=== PATIENT | female | born 1965 | race Caucasian/White ===

== ENCOUNTER → 2016-05-23 | Outpatient (CLI) | payer BC ==
[2016-05-23 19:23] LABS: Basophils # (A) 0.1 k/uL (0-0.2); Basophils % (A) 1 %; CH 32.7; CHCM 33.7; Eosinophils # (A) 0.1 k/uL (0-0.7); Eosinophils % (A) 2 %; HCT 47.8 % (34.0-46.0); HDW 2.32; HGB 15.5 gm/dL (11.4-16.0); Luc # (Auto) 0.11; Luc % (Auto) 1; Lymphocytes # (A) 2.1 k/uL (1.0-4.8); Lymphocytes % (A) 27 %; MCH 31.6 pg (25.0-35.0); MCHC 32.4 g/dL (31.0-37.0); MCV 97.5 fL (80.0-100.0); Mean Platelet Volume 8.3; Monocytes # (A) 0.3 k/uL (0-1.0); Monocytes % (A) 4 %; Neutrophils # (A) 5.1 k/uL (1.3-7.7); Neutrophils % (A) 65 %; RDW 12.8 % (11.5-15.5); WBC 7.8 k/uL (3.8-10.6); WBC (Perox) 7.72
[2016-05-23 19:46] LABS: ALT 40 U/L (9-52); AST 22 U/L (14-36); Alkaline Phosphatase 65 U/L (38-126); Anion Gap 12 mmol/L; Blood Urea Nitrogen 15 mg/dL (7-17); Calcium 9.7 mg/dL (8.4-10.2); Carbon Dioxide 22 mmol/L (22-30); Chloride 106 mmol/L (98-107); Cholesterol 238 mg/dL (<200); Glucose 106 mg/dL (74-99); HDL Cholesterol 45 mg/dL (40-60); Non-African American GFR(MDRD) >60 (>60 ml/min/1.73 sqM); Potassium 4.4 mmol/L (3.5-5.1); Sodium 140 mmol/L (137-145); Total Bilirubin 0.5 mg/dL (0.2-1.3); Total Protein 7.2 g/dL (6.3-8.2); Triglycerides 271 mg/dL (<150)
[2016-05-23 19:54] LABS: Follicle Stimulating Hormone 36.8 mIU/mL
== END ==
LOC: MMGSC 12:07
PROVIDERS: ATTEND Family Medicine
DX: E55.9 Vitamin D deficiency, unspecified (principal); R63.5 Abnormal weight gain; N93.8 Other specified abnormal uterine and vaginal bleeding; E78.1 Pure hyperglyceridemia
CPT/HCPCS: 36415; 80053; 80061; 82306; 83001; 83002; 84439; 84443; 85025

== ENCOUNTER → 2017-02-23 | Outpatient (CLI) | payer BC ==
[2017-02-23 21:18] LABS: ALT 40 U/L (9-52); AST 22 U/L (14-36); Albumin 4.2 g/dL (3.5-5.0); Alkaline Phosphatase 80 U/L (38-126); Anion Gap 12 mmol/L; Blood Urea Nitrogen 13 mg/dL (7-17); Calcium 9.7 mg/dL (8.4-10.2); Carbon Dioxide 26 mmol/L (22-30); Chloride 103 mmol/L (98-107); Cholesterol 252 mg/dL (<200); Glucose 114 mg/dL (74-99); HDL Cholesterol 37 mg/dL (40-60); LDL Cholesterol,Calculated 168 mg/dL (0-99); Potassium 4.2 mmol/L (3.5-5.1); Sodium 141 mmol/L (137-145); Total Bilirubin 0.4 mg/dL (0.2-1.3); Total Protein 6.9 g/dL (6.3-8.2); Triglycerides 234 mg/dL (<150)
== END | disposition home or self-care (01) ==
LOC: MMGSC 10:20
PROVIDERS: ATTEND Family Medicine
DX: E78.5 Hyperlipidemia, unspecified (principal); E55.9 Vitamin D deficiency, unspecified; Z51.81 Encounter for therapeutic drug level monitoring
CPT/HCPCS: 36415; 80053; 80061; 82306

== ENCOUNTER → 2017-03-05 | Outpatient (CLI) | payer BC ==
[2017-03-06 03:39] LABS: Hemoglobin A1C 6.2 % (4.0-6.0)
== END | disposition home or self-care (01) ==
LOC: MMGSC 14:31
PROVIDERS: ATTEND Family Medicine
DX: R73.09 Other abnormal glucose (principal)
CPT/HCPCS: 36415; 83036

== ENCOUNTER → 2017-03-14 | Outpatient (CLI) | payer BC ==
--- NOTE | 2017-03-15 13:26 | MM ---
Reason for exam: screening (asymptomatic). Last mammogram was performed 1 year and 5 months ago. History: Family history of breast cancer in aunt at age 45. Physical Findings: A clinical breast exam by your physician is recommended on an annual basis and results should be correlated with mammographic findings. MG Screening Mammo w CAD Bilateral CC and MLO view(s) were taken. Prior study comparison: October 14, 2015, bilateral MG screening mammo w CAD. August 12, 2014, bilateral MG screening mammo w CAD. The breast tissue is heterogeneously dense. This may lower the sensitivity of mammography. Finding: There are few typically benign round calcifications in both breasts. There is no discrete abnormality. ASSESSMENT: Benign, BI-RAD 2 RECOMMENDATION: Routine screening mammogram of both breasts in 1 year.
== END | disposition home or self-care (01) ==
LOC: RADMAMWWP 08:35
PROVIDERS: ATTEND Family Medicine
DX: Z12.31 Encounter for screening mammogram for malignant neoplasm of breast (principal)
CPT/HCPCS: 77067

== ENCOUNTER → 2018-04-11 | Outpatient (CLI) | payer BC ==
--- NOTE | 2018-04-12 09:54 | MM ---
Reason for exam: screening (asymptomatic). Last mammogram was performed 1 year and 1 month ago. History: Patient is postmenopausal. Family history of breast cancer in aunt at age 45. Physical Findings: A clinical breast exam by your physician is recommended on an annual basis and results should be correlated with mammographic findings. MG Screening Mammo w CAD Bilateral CC and MLO view(s) were taken. Prior study comparison: March 14, 2017, bilateral MG screening mammo w CAD. October 14, 2015, bilateral MG screening mammo w CAD. The breast tissue is heterogeneously dense. This may lower the sensitivity of mammography. No suspicious abnormality. No significant changes when compared with prior studies. ASSESSMENT: Negative, BI-RAD 1 RECOMMENDATION: Routine screening mammogram of both breasts in 1 year.
== END | disposition home or self-care (01) ==
LOC: RADMAMWWP 09:41
PROVIDERS: ATTEND Family Medicine
DX: Z12.31 Encounter for screening mammogram for malignant neoplasm of breast (principal)
CPT/HCPCS: 77067

== ENCOUNTER 2018-09-18 08:56 | Day surgery (SDC) | payer BC ==
[2018-09-11 10:06] VITALS: BMI 31.3
[~2018-09-18 08:56] MED LIST: LACTATED RINGERS 1,000 ML IV SCH
[2018-09-18 09:19] VITALS: RESP 16; TEMP 96.3
[2018-09-18] MEDS ORDERED: LIDOCAINE 1% 20 ML VIAL (10MG/ML) FOR IV START INTRADERMA ONE (09:25)
[2018-09-18 09:26] LABS: Glucose,Whole Blood 139 mg/dL (75-99)
[2018-09-18] MEDS ORDERED: MIDAZOLAM 2 MG/2 ML VIAL ONE (09:26)
[2018-09-18] MEDS ORDERED: ONDANSETRON 4 MG/2 ML VIAL ONE (09:26)
[2018-09-18] MEDS ORDERED: PROPOFOL 10 MG/ML 20 ML VIAL IV ONE (09:26)
--- NOTE | 2018-09-18 09:31 | P.GSHP ---
History of Present Illness H&P Date: 09/18/18 Chief Complaint: Blood in stool 52-year-old female known to our service. Patient had today for colonoscopy. Patient's father with colon cancer. Recently had a cologuard test comes back positive. Does not see gross bleeding or melena. Has not had a previous colonoscopy. Past Medical History Past Medical History: Diabetes Mellitus, GERD/Reflux, Hypertension Additional Past Medical History / Comment(s): + COLOGARD TEST History of Any Multi-Drug Resistant Organisms: None Reported Past Surgical History: Uterine Ablation Additional Past Anesthesia/Blood Transfusion Reaction / Comment(s): COMES OUT OF ANESTHESIA CRYING PER PT Smoking Status: Current every day smoker - Past Family History Father Family Medical History: Cancer Additional Family Medical History / Comment(s): COLONOSCOPY Medications and Allergies Home Medications Medication Instructions Recorded Confirmed Type Cetirizine HCl [Zyrtec] 10 mg PO DAILY 09/11/18 09/11/18 History Cholecalciferol [Vitamin D3] 800 unit PO DAILY 09/11/18 09/11/18 History Cranberry-4200mg 8,400 mg PO DAILY 09/11/18 History Fish Oil/Dha/Epa [Fish Oil 1,200 1 each PO DAILY 09/11/18 09/11/18 History mg Fish Oil] Furosemide [Lasix] 20 mg PO DAILY 09/11/18 09/11/18 History Pravastatin Sodium [Pravachol] 40 mg PO DAILY 09/11/18 09/11/18 History Ranitidine HCl 150 mg PO DAILY PRN 09/11/18 09/11/18 History Vitamin B Complex 1 each PO DAILY 09/11/18 09/11/18 History metFORMIN HCL [metFORMIN HCL ER 500 mg PO HS 09/11/18 09/11/18 History Osmotic] Allergies Allergy/AdvReac Type Severity Reaction Status Date / Time No Known Allergies Allergy Verified 09/11/18 09:53 Surgical - Exam Vital Signs Temp Pulse Resp BP Pulse Ox 96.3 F L 98 16 136/97 97 09/18/18 09:17 09/18/18 09:17 09/18/18 09:17 09/18/18 09:17 09/18/18 09:17 Physical exam: General: Well-developed, well-nourished HEENT: Normocephalic, sclerae nonicteric Abdomen: Nontender, nondistended Extremities: No edema Neuro: Alert and oriented Results - Labs Abnormal Lab Results - Last 24 Hours (Table) 09/18/18 Range/Units 09:23 POC Glucose (mg/dL) 139 H (75-99) mg/dL Assessment and Plan (1) Blood in stool Narrative/Plan: Will proceed with colonoscopy at this time Current Visit: Yes Status: Acute Code(s): K92.1 - MELENA SNOMED Code(s): 101272556
--- NOTE | 2018-09-18 09:47 | P.PCN ---
Date of Procedure: 09/18/18 Procedure(s) Performed: PREOPERATIVE DIAGNOSIS: Blood in stool, family history colon cancer in father POSTOPERATIVE DIAGNOSIS: Diverticulosis, small sigmoid polyp, mild sigmoid colitis PROCEDURE: Colonoscopy with biopsy ANESTHESIA: MAC SURGEON: Winston Sanchez M.D. SPECIMENS: Sigmoid colon polyp/colitis ENDOSCOPIC PROCEDURE: The patient was placed on the endoscopy table in the left decubitus position. The Olympus colonoscope was inserted into the anus and passed under direct visualization to the base of the cecum. The appendiceal orifice was visualized. From that point the scope was slowly withdrawn inspecting all surfaces carefully. There were no neoplastic inflammatory or polypoid lesions throughout the cecum, ascending, transverse, and descending colon. In the sigmoid colon there was mild inflammatory changes seen scattered throughout the sigmoid colon consistent with a mild colitis. In one area there was an adjacent small polyp. Biopsies of the colitis and biopsy of the polyp took place using cold biopsy forceps. The remainder of the sigmoid and rectum appeared normal. There was moderate left-sided diverticulosis as well. Inflammatory changes did not appear typical of diverticulitis however. Digital rectal examination revealed small hemorrhoids. The patient was taken to the recovery room in stable condition per anesthesia guidelines. RECOMMENDATIONS: Await biopsy results. Anticipate follow-up colonoscopy 5 years given both the patient's history of colon cancer in her father and the small polyp seen.
[2018-09-18 10:07] VITALS: BP 109/69; PULSE 69
== END 2018-09-18 10:23 | disposition home or self-care (01) ==
LOC: ORWHC2ENDO 08:56
PROVIDERS: ATTEND Surgery
DX: R19.5 Other fecal abnormalities (principal); Z80.0 Family history of malignant neoplasm of digestive organs; K52.9 Noninfective gastroenteritis and colitis, unspecified; D12.5 Benign neoplasm of sigmoid colon; E11.9 Type 2 diabetes mellitus without complications; F17.200 Nicotine dependence, unspecified, uncomplicated; I10 Essential (primary) hypertension; K64.9 Unspecified hemorrhoids
CPT/HCPCS: 88305; 45380; J2250; J2405; J2704

== ENCOUNTER → 2020-03-18 | Outpatient (CLI) | payer BC ==
--- NOTE | 2020-03-19 11:36 | MM ---
Reason for exam: screening (asymptomatic). Last mammogram was performed 1 year and 11 months ago. History: Patient is postmenopausal and has history of other cancer at age 53. Family history of breast cancer in aunt at age 45. Physical Findings: A clinical breast exam by your physician is recommended on an annual basis and results should be correlated with mammographic findings. MG Screening Mammo w CAD Bilateral CC and MLO view(s) were taken. Prior study comparison: April 11, 2018, bilateral MG screening mammo w CAD. March 14, 2017, bilateral MG screening mammo w CAD. The breast tissue is heterogeneously dense. This may lower the sensitivity of mammography. Stable benign calcifications. There is no discrete abnormality. Focal asymmetry upper outer left breast. No significant changes when compared with prior studies. ASSESSMENT: Benign, BI-RAD 2 RECOMMENDATION: Routine screening mammogram of both breasts in 1 year.
== END | disposition home or self-care (01) ==
LOC: RADMAMWWP 10:53
PROVIDERS: ATTEND Family Medicine
DX: Z12.31 Encounter for screening mammogram for malignant neoplasm of breast (principal)
CPT/HCPCS: 77067

== ENCOUNTER → 2020-03-29 | Outpatient (CLI) | payer BC | END | disposition home or self-care (01) | LOC: LABWHC1 15:32 | PROVIDERS: ATTEND Family Medicine | DX: Z20.822 Contact with and (suspected) exposure to COVID-19 (principal) | CPT/HCPCS: U0003; C9803 ==

== ENCOUNTER → 2020-04-09 | Outpatient (CLI) | payer BC ==
--- NOTE | 2020-04-09 14:52 | US ---
EXAMINATION TYPE: US pelvis complete transvag DATE OF EXAM: 04/09/2020 COMPARISON: NONE CLINICAL HISTORY: R10.9 abdominal pain. R10.2 pelvic pain. TECHNIQUE: Transvaginal (TV) and Transabdominal (TA) . Transabdominal sonographic images of the pel vis were acquired. Transvaginal sonographic images were medically necessary to better assess the fol lowing anatomy: Date of LMP: post menopausal, no HRT. EXAM MEASUREMENTS: Uterus: 6.9 x 3.5 x 5.1 cm Endometrial Stripe: 0.3 cm Right Ovary: 2.9 x 1.3 x 3.1 cm Left Ovary: 2.8 x 1.4 x 1.8 cm 1. Uterus: Anteverted heterogenous, echogenic area measures 1.2 x 1.0 x 1.2 cm posterior uterus ne ar endometrium. 2. Endometrium: wnl 3. Right Ovary: wnl 4. Left Ovary: wnl 5. Bilateral Adnexa: wnl 6. Posterior cul-de-sac: no free fluid Urinary bladder is sonolucent. IMPRESSION: 1. May be an echogenic uterine fibroid within the fundus of uterus. 2. Pelvic ultrasound is otherwise unremarkable.
--- NOTE | 2020-04-09 15:17 | US ---
EXAMINATION TYPE: US abdomen complete DATE OF EXAM: 04/09/2020 COMPARISON: NONE CLINICAL HISTORY: R10.9 abdominal pain. R10.2 pelvic pain. EXAM MEASUREMENTS: Liver Length: 13.3 cm Gallbladder Wall: 0.2 cm CBD: 0.5 cm Spleen: 11.1 cm Right Kidney: 12.4 x 4.6 x 5.2 cm Left Kidney: 13.5 x 4.6 x 6.2 cm Pancreas: not well visualized due to overlying bowel gas. Liver: difficult to penetrate Gallbladder: several stones with shadowing Evidence for sonographic Campo's sign: No CBD: wnl Spleen: wnl Right Kidney: No hydronephrosis or masses seen Left Kidney: No hydronephrosis or masses seen Upper IVC: wnl Abd Aorta: wnl IMPRESSION: 1. Cholelithiasis.
== END ==
LOC: RADUSWWP 12:35
PROVIDERS: ATTEND Family Medicine
DX: K80.20 Calculus of gallbladder without cholecystitis without obstruction (principal)
CPT/HCPCS: 76700; 76830; 76856

== ENCOUNTER → 2021-12-13 | Outpatient (CLI) | payer BC ==
--- NOTE | 2021-12-14 08:17 | MM ---
Reason for Exam: Screening (asymptomatic). Last mammogram was performed 1 year(s) and 9 month(s) ago. Patient History: Menarche at age 10. First Full-Term at age 17. Postmenopausal. Other cancer, age 53. Maternal aunt had breast cancer, age 45. Risk Values: Татьяна 5 year model risk: 0.9%. NCI Lifetime model risk: 5.7%. Prior Study Comparison: 03/14/2017 Bilateral Screening Mammogram, [facility]. 04/11/2018 Bilateral Screening Mammogram, [facility]. 03/18/2020 Bilateral Screening Mammogram, [facility]. Tissue Density: The breast tissue is heterogeneously dense. This may lower the sensitivity of mammography. Findings: Analyzed By CAD. Asymmetric distortion zone seen best on the left MLO view and additional views are recommended. No suspicious calcifications evident. Overall Assessment: Incomplete: need additional imaging evaluation, BI-RAD 0 Management: Diagnostic Mammogram of the left breast. A clinical breast exam by your physician is recommended on an annual basis and results should be correlated with mammographic findings. Electronically signed and approved by: Price Hebert M.D. Radiologis
== END | disposition home or self-care (01) ==
LOC: RADMAMWWP 11:11
PROVIDERS: ATTEND Family Medicine
DX: Z12.31 Encounter for screening mammogram for malignant neoplasm of breast (principal); Z78.0 Asymptomatic menopausal state; Z80.3 Family history of malignant neoplasm of breast
CPT/HCPCS: 77063; 77067

== ENCOUNTER → 2021-12-19 | Outpatient (CLI) | payer BC ==
--- NOTE | 2021-12-19 10:31 | MM ---
Reason for Exam: Additional evaluation requested from abnormal screening. Last screening mammogram was performed less than 1 month ago. Patient History: Menarche at age 10. First Full-Term at age 17. Postmenopausal. Other cancer, age 53. Maternal aunt had breast cancer, age 45. Risk Values: Татьяна 5 year model risk: 0.9%. NCI Lifetime model risk: 5.7%. Prior Study Comparison: 04/11/2018 Bilateral Screening Mammogram, [facility]. 03/18/2020 Bilateral Screening Mammogram, [facility]. 12/13/2021 Bilateral MG 3D screening mammo w/cad, [facility]. Tissue Density: Left: The breast tissue is heterogeneously dense. This may lower the sensitivity of mammography. Findings: Analyzed By CAD. Asymmetric prominent soft tissue in the inferior left breast persists and is not significantly changed from older mammograms. No definitive new lesion identified on additional views. Overall Assessment: Negative, BI-RAD 1 Management: Screening Mammogram of both breasts in 1 year. Return to routine follow-up. Results were given to the patient verbally at the time of exam. Electronically signed and approved by: Franklyn Lopez M.D.
== END | disposition home or self-care (01) ==
LOC: RADMAMWWP 10:01
PROVIDERS: ATTEND Family Medicine
DX: R92.8 Other abnormal and inconclusive findings on diagnostic imaging of breast (principal); Z78.0 Asymptomatic menopausal state; Z80.3 Family history of malignant neoplasm of breast
CPT/HCPCS: 77061; 77065

== ENCOUNTER 2022-06-01 23:24 | Observation (INO) | payer BC ==
[2022-06-01 23:36] VITALS: TEMP 97.8
[2022-06-02 00:22] LABS: Basophils # (A) 0.1 k/uL (0-0.2); Basophils % (A) 1 %; Eosinophils # (A) 0.1 k/uL (0-0.7); Eosinophils % (A) 1 %; HCT 45.2 % (34.0-46.0); HGB 15.8 gm/dL (11.4-16.0); Lymphocytes # (A) 3.3 k/uL (1.0-4.8); Lymphocytes % (A) 33 %; MCH 31.7 pg (25.0-35.0); MCHC 34.9 g/dL (31.0-37.0); Mean Platelet Volume 7.8; Monocytes # (A) 0.4 k/uL (0-1.0); Monocytes % (A) 4 %; Neutrophils % (A) 60 %; Platelet Count 216 k/uL (150-450); RBC 4.97 m/uL (3.80-5.40); RDW 12.1 % (11.5-15.5); WBC 10.1 k/uL (3.8-10.6)
[2022-06-02 00:27] LABS: Potassium 3.6 mmol/L (3.5-5.1)
[2022-06-02 00:28] LABS: Albumin 4.5 g/dL (3.5-5.0); Calcium 9.7 mg/dL (8.4-10.2); Magnesium 1.8 mg/dL (1.6-2.3); Total Bilirubin 0.5 mg/dL (0.2-1.3); Total Protein 7.1 g/dL (6.3-8.2)
[2022-06-02 00:30] LABS: INR 0.9 (<1.2); Partial Thromboplastin Time 23.3 sec (22.0-30.0)
--- NOTE | 2022-06-02 01:11 | XR ---
EXAM: XR Chest, 2 Views CLINICAL HISTORY: ITS.REASON XR Reason: Chest Pain TECHNIQUE: Frontal and lateral views of the chest. COMPARISON: No relevant prior studies available. FINDINGS: Lungs: Unremarkable. No consolidation. Pleural space: Unremarkable. No pneumothorax. Heart: Unremarkable. No cardiomegaly. Mediastinum: Unremarkable. Bones/joints: Unremarkable. IMPRESSION: Normal chest x-rays.
[2022-06-02] MEDS ORDERED: ASPIRIN 81 MG PO STA (01:49)
[2022-06-02] MEDS ORDERED: NITROGLYCERIN SL TABS 0.4 MG TAB SUBLINGUAL STA (01:49)
[2022-06-02] MEDS ORDERED: ACETAMINOPHEN TAB 500 MG TAB PO STA (01:50)
[2022-06-02] MEDS ORDERED: MORPHINE SULFATE 4 MG/ML SYRINGE IVP STA (02:57)
[2022-06-02] MEDS ORDERED: NALOXONE 0.4 MG/ML 1 ML VIAL IV PRN (02:57)
--- NOTE | 2022-06-02 02:57 | ED ---
Chest Pain HPI - General Chief Complaint: Chest Pain Stated Complaint: Chest Pain Time Seen by Provider: 06/02/22 00:31 Source: patient Mode of arrival: ambulatory Limitations: no limitations - History of Present Illness Initial Comments: 56-year-old female with past medical history of diabetes, high cholesterol who presents to the emergency department reporting chest pain. States that it started around 10:30. Describes it as a burning sensation over the anterior portion of her chest. States that the pain then began to go into her neck. She admits to nausea without vomiting. No ripping or tearing sensation. Denies fevers, chills or cough. No history of cardiac disease. Does have a strong family history. Her mother has had open heart surgery 2. She did not take any medications at home for her symptoms before coming in. He denies any numbness, tingling or weakness in her extremities. No other alleviating, precipitating or modifying factors - Related Data Home Medications Medication Instructions Recorded Confirmed Cetirizine HCl [Zyrtec] 10 mg PO DAILY 09/11/18 09/18/18 Cholecalciferol [Vitamin D3] 800 unit PO DAILY 09/11/18 09/11/18 Cranberry-4200mg 8,400 mg PO DAILY 09/11/18 Fish Oil/Dha/Epa [Fish Oil 1,200 1 each PO DAILY 09/11/18 09/11/18 mg Fish Oil] Furosemide [Lasix] 20 mg PO DAILY 09/11/18 09/11/18 Pravastatin Sodium [Pravachol] 40 mg PO DAILY 09/11/18 09/11/18 Vitamin B Complex 1 each PO DAILY 09/11/18 09/11/18 metFORMIN HCL [metFORMIN HCL ER 500 mg PO HS 09/11/18 09/11/18 Osmotic] raNITIdine HCL [Zantac] 150 mg PO DAILY PRN 09/11/18 09/11/18 Allergies Allergy/AdvReac Type Severity Reaction Status Date / Time atorvastatin [From Lipitor] AdvReac Unknown Unverified 06/02/22 05:30 Review of Systems ROS Statement: Those systems with pertinent positive or pertinent negative responses have been documented in the HPI. ROS Other: All systems not noted in ROS Statement are negative. EKG Findings - EKG Comments: EKG Findings:: EKG demonstrates sinus rhythm with a rate of 93. LA interval 157. QRS 89. QTC of 414. No acute ST segment elevations or depressions Past Medical History Past Medical History: Diabetes Mellitus Additional Past Medical History / Comment(s): high cholestrol History of Any Multi-Drug Resistant Organisms: None Reported Past Surgical History: No Surgical Hx Reported Past Psychological History: No Psychological Hx Reported Smoking Status: Former smoker Past Alcohol Use History: Occasional Past Drug Use History: None Reported - Past Family History Father Family Medical History: Hypertension General Exam Limitations: no limitations Course Vital Signs 06/01/22 06/02/22 06/02/22 23:33 00:43 00:50 Temperature 97.8 F Pulse Rate 102 H 92 Respiratory 20 12 Rate Blood Pressure 137/90 121/86 121/86 O2 Sat by Pulse 99 98 Oximetry 06/02/22 06/02/22 06/02/22 01:00 01:10 01:20 Temperature Pulse Rate 89 92 90 Respiratory 17 12 19 Rate Blood Pressure 129/83 O2 Sat by Pulse 97 97 96 Oximetry 06/02/22 06/02/22 06/02/22 01:30 01:40 01:50 Temperature Pulse Rate 96 95 96 Respiratory 14 19 Rate Blood Pressure 124/80 O2 Sat by Pulse 95 95 96 Oximetry 06/02/22 06/02/22 06/02/22 02:00 02:10 02:15 Temperature Pulse Rate 98 102 H 106 H Respiratory 19 18 Rate Blood Pressure 127/92 127/92 O2 Sat by Pulse 96 95 96 Oximetry 06/02/22 06/02/22 06/02/22 02:30 02:40 02:50 Temperature Pulse Rate 102 H 101 H 101 H Respiratory 18 Rate Blood Pressure 128/81 109/81 O2 Sat by Pulse 96 95 96 Oximetry 06/02/22 06/02/22 06/02/22 03:00 03:10 03:20 Temperature Pulse Rate 110 H 106 H 99 Respiratory Rate Blood Pressure 122/97 O2 Sat by Pulse 95 95 94 L Oximetry 06/02/22 06/02/22 06/02/22 03:30 03:40 03:50 Temperature Pulse Rate 95 93 96 Respiratory 15 Rate Blood Pressure 116/75 O2 Sat by Pulse 95 94 L 94 L Oximetry 06/02/22 06/02/22 06/02/22 04:00 04:10 04:20 Temperature Pulse Rate 102 H 93 95 Respiratory 19 Rate Blood Pressure 116/75 117/81 O2 Sat by Pulse 95 92 L 94 L Oximetry 06/02/22 04:30 Temperature Pulse Rate 90 Respiratory 19 Rate Blood Pressure O2 Sat by Pulse 93 L Oximetry Chest Pain MDM - MDM Was pt. sent in by a medical professional or institution ([facility], PCT, urgent care, hospital, or halfway...) When possible be specific @ -[No] Did you speak to anyone other than the patient for history (EMS, parent, family, police, friend...)? What history was obtained from this source @ -[No] Did you review nursing and triage notes (agree or disagree)? Why? @ -[I reviewed and agree with nursing and triage notes] Were old charts reviewed (outside hosp., previous admission, EMS record, old EKG, old radiological studies, urgent care reports/EKG's, halfway records)? Report findings @ -[No old charts were reviewed] Differential Diagnosis (chest pain, altered mental status, abdominal pain women, abdominal pain men, vaginal bleeding, weakness, fever, dyspnea, syncope, headache, dizziness, GI bleed, back pain, seizure, CVA, palpatations, mental health, musculoskeletal)? @ -[not applicable] EKG interpreted by me (3pts min.). @ -[As above] X-rays interpreted by me (1pt min.). @ -[None done] CT interpreted by me (1pt min.). @ -[None done] U/S interpreted by me (1pt. min.). @ -[None done] What testing was considered but not performed or refused? (CT, X-rays, U/S, labs)? Why? @ -[None] What meds were considered but not given or refused? Why? @ -[None] Did you discuss the management of the patient with other professionals (professionals i.e. [facility], PCT, lab, RT, psych nurse, social psychologist, acoustical logging engineer, teacher, quarantine officer, returned case inspector)? Give summary @ -[No] Was smoking cessation discussed for >3mins.? @ -[No] Was critical care preformed (if so, how long)? @ -[No] Were there social determinants of health that impacted care today? How? (Homelessness, low income, unemployed, alcoholism, drug addiction, transportation, low edu. Level, literacy, decrease access to med. care, custodial, rehab)? @ -[No] Was there de-escalation of care discussed even if they declined (Discuss DNR or withdrawal of care, Hospice)? DNR status @ -[No] What co-morbidities impacted this encounter? (DM, HTN, Smoking, COPD, CAD, Cancer, CVA, ARF, Chemo, Hep., AIDS, mental health diagnosis, sleep apnea, morbid obesity)? @ -[None] Was patient admitted / discharged? Hospital course, mention meds given and route, prescriptions, significant lab abnormalities, going to OR and other pertinent info. @ -Upon arrival patient was placed into room 19. A thorough history and physical exam was performed. The lead EKG is obtained. Patient is placed on continuous pulse ox and cardiac monitoring. Laboratory studies are conducted and reviewed. Troponin is undetectable. Chest x-ray demonstrates no acute process. She is given a sublingual nitro which decreases her pain from a 10 out of 10 to a 7 out of 10. The patient is further given 4 mg of morphine. I recommended admission for which she was agreeable. Spoke with Dr. Lagos. Cardiology will be consulted and an echo was ordered Undiagnosed new problem with uncertain prognosis? @ -[No] Drug Therapy requiring intensive monitoring for toxicity (Heparin, Nitro, Insulin, Cardizem)? @ -[No] Were any procedures done? @ -[No] Diagnosis/symptom? @ -[default] Acute, or Chronic, or Acute on Chronic? @ -[default] Uncomplicated (without systemic symptoms) or Complicated (systemic symptoms)? @ -[default] Side effects of treatment? @ -[No] Exacerbation, Progression, or Severe Exacerbation? @ -[No] Poses a threat to life or bodily function? How? (Chest pain, [place], [place], pneumonia, PE, COPD, DKA, ARF, appy, cholecystitis, CVA, Diverticulitis, Homicidal, Suicidal, threat to staff... and all critical care pts) @ -[No] Disposition Clinical Impression: Chest pain Disposition: ADMITTED IP TO THIS [facility] Condition: Stable Is patient prescribed a controlled substance at d/c from ED?: No Time of Disposition: 02:56 Decision to Admit Reason: Admit from EC Decision Date: 06/02/22 Decision Time: 02:56
[2022-06-02] MEDS ORDERED: ATORVASTATIN 80 MG TAB PO STA (04:51)
--- NOTE | 2022-06-02 04:52 | P.HPIM ---
History of Present Illness H&P Date: 06/02/22 The patient is a 56-year-old female with a PMH of type II DM and hyperlipidemia who presents to the emergency room with complaints of chest discomfort and shortness of breath. The patient reports that her symptoms started earlier tonight at around 10 PM with substernal sharp, burning, stabbing chest discomfort, radiating up into her upper chest and neck, 10/10 maximal intensity, pleuritic in nature, without any additional associated symptoms. The patient reports that the pain was constant, and was improved after arrival at the emergency room and receiving pain medication. She reports that her pain is improved to a 1 out of 10 at the time of interview. She denied experiencing fever, chills, cough, nausea, vomiting, abdominal pain, diarrhea. Chest x-ray in the emergency room was unremarkable. EKG revealed sinus rhythm at [address]/T-wave changes noted as reviewed by me. Laboratory evaluation was remarkable for troponin less than 0.012, hgb 10.1, hemoglobin 15.8, sodium 137, potassium 3.6, BUN 20, creatinine 0.84. ED documentation reviewed and case discussed with ED provider. Review of systems: Pertinent positives and negatives as discussed in HPI, a complete review of systems was performed and all other systems are negative. Physical examination: Vital signs reviewed General: non toxic, no distress, appears at stated age, normal weight Derm: no unusual rashes/lesions, warm Head: atraumatic, normocephalic, symmetric Eyes: EOMI, no lid lag, anicteric sclera, pupils equal round reactive to light ENT: Nose and ears atraumatic Neck: No cervical lymphadenopathy, trachea midline, supple Mouth: no lip lesion, mucus membranes moist Cardiovascular: S1S2 reg, no murmur, positive dorsalis pedis pulse bilateral, no edema Lungs: CTA bilateral, no rhonchi, no rales, no accessory muscle use Abdominal: soft, nontender to palpation, no guarding Ext: muscle strength 5 out of 5 in all 4 extremities grossly, no gross muscle atrophy, no contractures, Neuro: CN II-XI grossly intact, no gross focal neuro deficits Psych: Alert, oriented, appropriate affect Assessment: Chest pain, rule out ACS Chronic conditions: Type 2 DM, hyperlipidemia Imaging: Chest x-ray in the emergency room was unremarkable. EKG revealed sinus rhythm at [address]/T-wave changes noted as reviewed by me. Data Review: Laboratory evaluation was remarkable for troponin less than 0.012, hgb 10.1, hemoglobin 15.8, sodium 137, potassium 3.6, BUN 20, creatinine 0.84. Plan: Obtain d-dimer levels Trend troponin Cardiac monitoring Cardiology consult Continue with aspirin, statin Insulin sliding scale and blood glucose monitoring DVT prophylaxis: Heparin subq The patient is admitted with an anticipated less than 2 midnight stay for evaluation of chest pain CODE STATUS: Full Code Discussed with: Patient Anticipated discharge place: Home Past Medical History Past Medical History: Diabetes Mellitus Additional Past Medical History / Comment(s): high cholestrol History of Any Multi-Drug Resistant Organisms: None Reported Past Surgical History: No Surgical Hx Reported Past Psychological History: No Psychological Hx Reported Smoking Status: Former smoker Past Alcohol Use History: Occasional Past Drug Use History: None Reported - Past Family History Father Family Medical History: Hypertension Medications and Allergies Home Medications Medication Instructions Recorded Confirmed Type Cetirizine HCl [Zyrtec] 10 mg PO DAILY 09/11/18 09/18/18 History Cholecalciferol [Vitamin D3] 800 unit PO DAILY 09/11/18 09/11/18 History Cranberry-4200mg 8,400 mg PO DAILY 09/11/18 History Fish Oil/Dha/Epa [Fish Oil 1,200 1 each PO DAILY 09/11/18 09/11/18 History mg Fish Oil] Furosemide [Lasix] 20 mg PO DAILY 09/11/18 09/11/18 History Pravastatin Sodium [Pravachol] 40 mg PO DAILY 09/11/18 09/11/18 History Vitamin B Complex 1 each PO DAILY 09/11/18 09/11/18 History metFORMIN HCL [metFORMIN HCL ER 500 mg PO HS 09/11/18 09/11/18 History Osmotic] raNITIdine HCL [Zantac] 150 mg PO DAILY PRN 09/11/18 09/11/18 History Allergies Allergy/AdvReac Type Severity Reaction Status Date / Time No Known Allergies Allergy Verified 06/01/22 23:36 Physical Exam Vitals: Vital Signs Temp Pulse Resp BP Pulse Ox 06/02/22 03:50 96 94 L 06/02/22 03:40 93 15 116/75 94 L 06/02/22 03:30 95 95 06/02/22 03:20 99 94 L 06/02/22 03:10 106 H 122/97 95 06/02/22 03:00 110 H 95 06/02/22 02:50 101 H 96 06/02/22 02:40 101 H 18 109/81 95 06/02/22 02:30 102 H 128/81 96 06/02/22 02:15 106 H 18 127/92 96 06/02/22 02:10 102 H 127/92 95 06/02/22 02:00 98 19 96 06/02/22 01:50 96 19 96 06/02/22 01:40 95 14 124/80 95 06/02/22 01:30 96 95 06/02/22 01:20 90 19 96 06/02/22 01:10 92 12 129/83 97 06/02/22 01:00 89 17 97 06/02/22 00:50 121/86 06/02/22 00:43 92 12 121/86 98 06/01/22 23:33 97.8 F 102 H 20 137/90 99 Intake and Output 06/01/22 06/01/22 06/02/22 14:59 22:59 06:59 Other: Weight 93.894 kg Results CBC & Chem 7: 06/02/22 00:07 06/02/22 00:07 Labs: Abnormal Lab Results - Last 24 Hours (Table) 06/02/22 Range/Units 00:07 BUN 20 H (7-17) mg/dL Glucose 151 H (74-99) mg/dL ALT 35 H (4-34) U/L
[2022-06-02] MEDS ORDERED: HEPARIN SODIUM,PORCINE/PF 5,000 UNIT/0.5 ML SYRINGE SQ SCH (08:00)
[2022-06-02 08:18] LABS: Glucose,Whole Blood 126 mg/dL (70-110)
[2022-06-02] MEDS: INSULIN ASPART (NovoLOG) 100 UNIT/ML VIAL SQ SCH ×2 (08:19→13:44)
[2022-06-02 08:24] VITALS: RESP 18
[2022-06-02] MEDS ORDERED: ACETAMINOPHEN TAB 325 MG TAB PO PRN ×2 (08:34→08:51)
[2022-06-02] MEDS ORDERED: CAFFEINE CITRATE 60 MG/3 ML VIAL IV PRN (08:37)
[2022-06-02] MEDS ORDERED: AMINOPHYLLINE 500 MG/20 ML VIAL IV PRN (08:37)
[2022-06-02] MEDS ORDERED: REGADENOSON 0.4 MG/5 ML SYRINGE IV PRN (08:37)
--- NOTE | 2022-06-02 09:59 | P.CRDCN ---
History of Present Illness History of present illness: HISTORY OF PRESENT ILLNESS: This is a 56-year-old female with a past medical history significant for hyperlipidemia, diabetes, and former nicotine dependence. 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 We have been asked to see the patient in consultation for chest pain. Patient examined at the bedside. Patient states yesterday when she was at home sitting in her chair she began to have chest pain. She states this felt like a burning sensation and also stabbing sensation in the middle of her chest. She states the pain went across her back and into her shoulder blades. She states at 11:00 last night she underwent waking up her and decided to come to the emergency room for further evaluation. She continues to report mild discomfort this morning. She states the pain is a little bit worse with deep inspiration or positional movements. She is a former cigarette smoker and quit smoking in January 2022. She states she has a family history of coronary artery disease in her mom had a heart attack at the age of 52. * EKG reveals sinus mechanism with no signs of acute ischemia * Chest xray negative for acute process * Laboratory data: WBC 10.1. Hemoglobin 15.8. Platelet count 216. D-dimer 0.32. Sodium 137. Potassium 3.6. BUN 20. Creatinine 0.84. Troponin negative 3. * Current home cardiac medications include Pravachol 80 mg daily and Lasix 20 mg daily REVIEW OF SYSTEMS: At the time of my exam: CONSTITUTIONAL: Denies fever or chills. HEENT: Denies blurred vision, vision changes, or eye pain. Denies hemoptysis CARDIOVASCULAR: Denies chest pain. Denies orthopnea. Denies PND. Denies palpitations RESPIRATORY: Denies shortness of breath. GASTROINTESTINAL: Denies abdominal pain. Denies nausea or vomiting. HEMATOLOGIC: Denies bleeding disorders. GENITOURINARY: Denies any blood in urine. SKIN: Denies pruitis. Denies rash. PHYSICAL EXAM: VITAL SIGNS: Reviewed. GENERAL: Well-developed in no acute distress. HEENT: Head is normocephalic. Pupils are equal, round. Sclerae anicteric. Mucous membranes of the mouth are moist. Neck supple. No JVD or thyromegaly LUNGS: Respirations even and unlabored. Lungs essentially clear to auscultation bilaterally. HEART: Regular rate and rhythm. S1 and S2 heard. ABDOMEN: Soft. Nondistended. Nontender. EXTREMITIES: Normal range of motion. No clubbing or cyanosis. Peripheral pulses intact. No lower extremity edema NEUROLOGIC: Awake and alert. Oriented x 3. ASSESSMENT: Chest pain, troponins negative 3 Hyperlipidemia Diabetes Former nicotine dependence Family history of premature coronary artery disease PLAN: An acute coronary event has been ruled out Obtain 2-D echo to assess cardiac structure and function Resume home cardiac medications Obtain CRP and sed rate Patient will undergo Lexiscan stress test today Further recommendations pending patient's course Nurse practitioner note has been reviewed by physician. Signing provider agrees with the documented findings, assessment, and plan of care. Past Medical History Past Medical History: Diabetes Mellitus Additional Past Medical History / Comment(s): high cholestrol History of Any Multi-Drug Resistant Organisms: None Reported Past Surgical History: No Surgical Hx Reported Past Psychological History: No Psychological Hx Reported Smoking Status: Former smoker Past Alcohol Use History: Occasional Past Drug Use History: None Reported - Past Family History Father Family Medical History: Hypertension Medications and Allergies Home Medications Medication Instructions Recorded Confirmed Type Cranberry-4200mg 8,400 mg PO DAILY 09/11/18 06/02/22 History Furosemide [Lasix] 20 mg PO DAILY 09/11/18 06/02/22 History Cholecalciferol [Vitamin D3 (25 25 mcg PO DAILY 06/02/22 06/02/22 History Mcg = 1000 Iu)] Multivitamins, Thera [Multivitamin 1 tab PO DAILY 06/02/22 06/02/22 History (formulary)] [place]-3 Acid Ethyl Esters [Lovaza] 2 gm PO BID 06/02/22 06/02/22 History Pravastatin Sodium [Pravachol] 80 mg PO DAILY 06/02/22 06/02/22 History Semaglutide [Ozempic] 0.5 mg SQ WILLIS 06/02/22 06/02/22 History Allergies Allergy/AdvReac Type Severity Reaction Status Date / Time atorvastatin [From Lipitor] AdvReac Unknown Verified 06/02/22 06:37 Physical Exam Vitals: Vital Signs Temp Pulse Resp BP Pulse Ox 06/02/22 08:23 88 18 126/72 97 06/02/22 06:40 99 16 102/79 94 L 06/02/22 06:30 96 10 L 95 06/02/22 06:20 89 17 95 06/02/22 06:10 88 9 L 100/67 94 L 06/02/22 06:00 96 95 06/02/22 05:50 91 95 06/02/22 05:40 95 104/81 93 L 06/02/22 05:30 99 93 L 06/02/22 05:20 91 18 93 L 06/02/22 05:10 98 104/71 92 L 06/02/22 05:00 92 92 L 06/02/22 04:50 94 9 L 94 L 06/02/22 04:40 93 18 113/73 92 L 06/02/22 04:30 90 19 93 L 06/02/22 04:20 95 117/81 94 L 06/02/22 04:10 93 19 92 L 06/02/22 04:00 102 H 116/75 95 06/02/22 03:50 96 94 L 06/02/22 03:40 93 15 116/75 94 L 06/02/22 03:30 95 95 06/02/22 03:20 99 94 L 06/02/22 03:10 106 H 122/97 95 06/02/22 03:00 110 H 95 06/02/22 02:50 101 H 96 06/02/22 02:40 101 H 18 109/81 95 06/02/22 02:30 102 H 128/81 96 06/02/22 02:15 106 H 18 127/92 96 06/02/22 02:10 102 H 127/92 95 06/02/22 02:00 98 19 96 06/02/22 01:50 96 19 96 06/02/22 01:40 95 14 124/80 95 06/02/22 01:30 96 95 06/02/22 01:20 90 19 96 06/02/22 01:10 92 12 129/83 97 06/02/22 01:00 89 17 97 06/02/22 00:50 121/86 06/02/22 00:43 92 12 121/86 98 06/01/22 23:33 97.8 F 102 H 20 137/90 99 Intake and Output 06/01/22 06/02/22 06/02/22 22:59 06:59 14:59 Other: Weight 93.894 kg Results 06/02/22 00:07 06/02/22 00:07 Cardiac Enzymes 06/02/22 06/02/22 06/02/22 Range/Units 00:07 00:07 03:05 AST 26 (14-36) U/L Troponin I <0.012 <0.012 (0.000-0.034) ng/mL 06/02/22 Range/Units 05:25 AST (14-36) U/L Troponin I <0.012 (0.000-0.034) ng/mL Coagulation 06/02/22 Range/Units 00:07 PT 10.0 (9.0-12.0) sec APTT 23.3 (22.0-30.0) sec CBC 06/02/22 Range/Units 00:07 WBC 10.1 (3.8-10.6) k/uL RBC 4.97 (3.80-5.40) m/uL Hgb 15.8 (11.4-16.0) gm/dL Hct 45.2 (34.0-46.0) % Plt Count 216 (150-450) k/uL Comprehensive Metabolic Panel 06/02/22 Range/Units 00:07 Sodium 137 (137-145) mmol/L Potassium 3.6 (3.5-5.1) mmol/L Chloride 102 (98-107) mmol/L Carbon Dioxide 23 (22-30) mmol/L BUN 20 H (7-17) mg/dL Creatinine 0.84 (0.52-1.04) mg/dL Glucose 151 H (74-99) mg/dL Calcium 9.7 (8.4-10.2) mg/dL AST 26 (14-36) U/L ALT 35 H (4-34) U/L Alkaline Phosphatase 70 (38-126) U/L Total Protein 7.1 (6.3-8.2) g/dL Albumin 4.5 (3.5-5.0) g/dL Current Medications Generic Name Dose Route Start Last Admin Trade Name Freq PRN Reason Stop Dose Admin Acetaminophen 650 mg 06/02/22 08:34 Acetaminophen Tab 325 Mg Tab PO Q6HR PRN Fever and/ or Pain Heparin Sodium (Porcine) 5,000 unit 06/02/22 08:00 06/02/22 08:22 Heparin Sodium,Porcine/Pf 5,000 Unit/0.5 Ml Syringe SQ 5,000 unit Q8HR FRANCOSIE Administration Insulin Aspart 0 unit 04/28/23 07:30 06/02/22 08:19 Insulin Aspart (Novolog) 100 Unit/Ml Vial SQ Not Given ACHS FRANCOISE Protocol Naloxone HCl 0.2 mg 06/02/22 02:57 Naloxone 0.4 Mg/Ml 1 Ml Vial IV Q2M PRN Opioid Reversal Intake and Output 06/01/22 06/02/22 06/02/22 22:59 06:59 14:59 Other: Weight 93.894 kg 06/02/22 00:07 06/02/22 00:07
[2022-06-02] MEDS ORDERED: FUROSEMIDE 20 MG TAB PO SCH (10:00)
[2022-06-02] MEDS ORDERED: PRAVASTATIN SODIUM 80 MG TAB PO SCH (10:00)
--- NOTE | 2022-06-02 11:55 | CA ---
Transthoracic Echo Report Name: Adriel Morales Age: 56 Gender: F : 1965 Exam Date: 06/02/2022 08:20 Exam Location: [place] Echo Ht (in): 67 Wt (lb): 207 Ordering Physician: Betty Blackwood DO Attending/Referring Phys: [id number], [employer] Sales Representative Elvira Hsieh RDCS Procedure CPT: Indications: Chest Pain Cardiac Hx: Technical Quality: Fair Contrast 1: Total Dose (mL): Contrast 2: Total Dose (mL): MEASUREMENTS (Male / Female) Normal Values 2D ECHO LV Diastolic Diameter PLAX 3.8 cm 4.2 - 5.9 / 3.9 - 5.3 cm LV Systolic Diameter PLAX 2.0 cm IVS Diastolic Thickness 1.2 cm 0.6 - 1.0 / 0.6 - 0.9 cm LVPW Diastolic Thickness 1.1 cm 0.6 - 1.0 / 0.6 - 0.9 cm LV Relative Wall Thickness 0.6 RV Internal Dim ED PLAX 4.0 cm LA Volume 42.9 cm??? 18 - 58 / 22 - 52 cm??? M-MODE Aortic Root Diameter MM 3.0 cm LA Systolic Diameter MM 2.5 cm LA Ao Ratio MM 0.8 AV Cusp Separation MM 1.4 cm DOPPLER AV Peak Velocity 195.6 cm/s AV Peak Gradient 15.3 mmHg AV Mean Velocity 122.9 cm/s AV Mean Gradient 7.0 mmHg AV Velocity Time Integral 32.7 cm LVOT Peak Velocity 96.9 cm/s LVOT Peak Gradient 3.8 mmHg MV Area PHT 3.7 cm??? Mitral E Point Velocity 92.2 cm/s Mitral A Point Velocity 79.7 cm/s Mitral E to A Ratio 1.2 MV Deceleration Time 207.5 ms MV E' Velocity 8.4 cm/s Mitral E to MV E' Ratio 11.0 TR Peak Velocity 205.3 cm/s TR Peak Gradient 16.9 mmHg Right Ventricular Systolic Press 21.8 mmHg FINDINGS Left Ventricle Mildly increased left ventricular wall thickness. Left ventricular cavity size normal. Normal left ventricular systolic function with no obvious regional wall motion abnormalities. Left ventricular ejection fraction is estimated at 55 %. Right Ventricle Moderate right ventricular dilatation. Right ventricular systolic pressure within normal limits. Right Atrium Normal right atrial size. Left Atrium Normal left atrial size. Mitral Valve Structurally normal mitral valve. Mitral valve thickened. Mild mitral annular calcification. Mild mitral regurgitation. Aortic Valve Trileaflet aortic valve. Diffuse thickening (sclerosis) of the aortic valve cusps without reduced excursion. Thickened aortic valve without stenosis. No aortic regurgitation. Tricuspid Valve Structurally normal tricuspid valve. Mild tricuspid regurgitation. Pulmonic Valve Trace pulmonic regurgitation. Pericardium No pericardial effusion. Aorta Normal size aortic root and proximal ascending aorta. CONCLUSIONS Normal LV systolic function Aortic sclerosis with no stenosis or insufficiency Previewed by: Dr. Mohsen Bustamante MD (Electronically Signed) Final Date: 02 June 2022 11:54
--- NOTE | 2022-06-02 13:06 | CA ---
Lexiscan Nuclear Stress Test Report Name: Adriel Morales Exam Date: 06/02/2022 12:00 Exam Location: [place] Stress Ht (in): 67 Wt (lb): 207 BSA: 2.05 Ordering Phys: Laura Marsh Referring Phys: JOESPH, Technologist: Santhosh Landin Age: 56 Gender: F : 1965 Procedure CPT: Indications: Reflex order-Stress test ICD-10 Codes: Patient History: CHEST PAIN, DIABETIC, FAMILY HX OF HEART DISEASE, CURRENT SMOKER 1.5 PPD Medications: Meds past 24 hrs: Pretest Chest Pain: STRESS TEST Lexiscan Protocol Exercise Duration (min:sec): 02:[address] Depressions (mm): Angina Score: Anne Score: Resting HR (bpm): 86 Peak HR (bpm): 114 Resting BP (mmHg): 150 / 78 Peak BP (mmHg): 150 / 78 MPHR: 162 Target HR: 138 % MPHR: 70 METS: 1.0 Total Dose: Peak Dose: Atropine: Double Product: 81504 BP Response: Stress Termination: INFUSION COMPLETE Stress Symptoms: NO SYMPTOMS Stress Summary: ECG ANALYSIS Resting ECG: Stress ECG: CONCLUSIONS Nondiagnostic electrocardiogram stress testing Dr. Mohsen Bustamante MD (Electronically Signed) Final Date: 02 June 2022 13:05
[2022-06-02 13:43] VITALS: BP 115/86; PULSE 83
--- NOTE | 2022-06-02 15:32 | NM ---
EXAMINATION TYPE: NM stress lexiscan cardiolite DATE OF EXAM: 06/02/2022 COMPARISON: NONE CLINICAL INDICATION: Female, 56 years old with history of CP; history of tobacco use in the past tawanda g with diabetes TECHNIQUE: After the intravenous administration of 10.2 mCi Tc 99m Sestamibi - Cardiolite resting SP ECT images acquired 45 minutes post injection. The patient received 0.4mg Lexiscan, 25.1 mCi Tc 99m Sestamibi - Stress images obtained [address] injection FINDINGS: Review of stress and rest SPECT images demonstrates no distinct perfusion abnormality. Gated analysi s shows normal wall motion with an estimated left ventricular ejection fraction of 72 %. IMPRESSION: No scintigraphic evidence for reversible ischemia.
--- NOTE | 2022-06-02 15:39 | P.DS ---
Providers Date of admission: 06/02/22 02:58 Expected date of discharge: 06/02/22 Attending physician: Jorge Lagos MD Consults: 06/02/22 02:57 Consult Physician Urgent Consulting Provider: [facility] Consult Reason/Comments: acute chest pain, possible acs Do you want consulting provider notified?: Yes Primary care physician: [facility] Course: The patient is a 56-year-old female with a PMH of type II DM and hyperlipidemia who presents to the emergency room with complaints of chest discomfort and shortness of breath. The patient reports that her symptoms started earlier tonight at around 10 PM with substernal sharp, burning, stabbing chest discomfort, radiating up into her upper chest and neck, 10/10 maximal intensity, pleuritic in nature, without any additional associated symptoms. The patient reports that the pain was constant, and was improved after arrival at the emergency room and receiving pain medication. She reports that her pain is improved to a 1 out of 10 at the time of interview. She denied experiencing fever, chills, cough, nausea, vomiting, abdominal pain, diarrhea. Chest x-ray in the emergency room was unremarkable. EKG revealed sinus rhythm at [address]/T-wave changes noted. Laboratory evaluation was remarkable for troponin less than 0.012, hgb 10.1, hemoglobin 15.8, sodium 137, potassium 3.6, BUN 20, creatinine 0.84. Troponins were trended and ACS was ruled out. D-dimer was negative. Echocardiogram showed normal LV systolic function, aortic sclerosis with no stenosis or regurgitation. Cardiology was consulted and recommended stress test. Stress test was negative. Patient was seen and examined. No acute events overnight. Patient continues to report chest pain though symptoms have improved since admission. Pain is 2 out of 10 in severity. Pertinent studies include chest x-ray, echocardiogram, stress test. General: non toxic, no distress, appears at stated age Derm: warm, dry Head: atraumatic, normocephalic, symmetric Eyes: EOMI, no lid lag, anicteric sclera Cardiovascular: S1S2 reg, no murmur Lungs: CTA bilateral, no rhonchi, no rales , no accessory muscle use Ext: no gross muscle atrophy, no edema, no contractures Neuro: no focal neuro deficits Psych: Alert, oriented, appropriate affect Discharge diagnosis: Chest pain, rule out ACS Chronic conditions: Type 2 DM, hyperlipidemia This complex discharge took 35 minutes to complete. Patient Condition at Discharge: Stable Plan - Discharge Summary New Discharge Prescriptions: New Aspirin 81 mg PO DAILY #30 tab Continue Furosemide [Lasix] 20 mg PO DAILY Cranberry-4200mg 8,400 mg PO DAILY Semaglutide [Ozempic] 0.5 mg SQ WILLIS Pravastatin Sodium [Pravachol] 80 mg PO DAILY [place]-3 Acid Ethyl Esters [Lovaza] 2 gm PO BID Multivitamins, Thera [Multivitamin (formulary)] 1 tab PO DAILY Cholecalciferol [Vitamin D3 (25 Mcg = 1000 Iu)] 25 mcg PO DAILY Discharge Medication List Cranberry-4200mg 8,400 mg PO DAILY 09/11/18 [History] Furosemide [Lasix] 20 mg PO DAILY 09/11/18 [History] Aspirin 81 mg PO DAILY #30 tab 06/02/22 [Rx] Cholecalciferol [Vitamin D3 (25 Mcg = 1000 Iu)] 25 mcg PO DAILY 06/02/22 [History] Multivitamins, Thera [Multivitamin (formulary)] 1 tab PO DAILY 06/02/22 [History] [place]-3 Acid Ethyl Esters [Lovaza] 2 gm PO BID 06/02/22 [History] Pravastatin Sodium [Pravachol] 80 mg PO DAILY 06/02/22 [History] Semaglutide [Ozempic] 0.5 mg SQ WILLIS 06/02/22 [History] Follow up Appointment(s)/Referral(s): Vicenta Vasquez MD [Primary Care Provider] - 1-2 days Discharge Disposition: HOME SELF-CARE
[2022-06-03] MEDS ORDERED: ASPIRIN 81 MG PO SCH (09:00)
== END 2022-06-02 18:44 | disposition home or self-care (01) ==
LOC: EC 23:24 → 6NMEDSUR 06-02 02:58
PROVIDERS: ADMIT Internal Medicine; ATTEND Internal Medicine
DX: R07.89 Other chest pain (principal); I35.8 Other nonrheumatic aortic valve disorders; R06.02 Shortness of breath; R11.0 Nausea; E11.9 Type 2 diabetes mellitus without complications; E78.00 Pure hypercholesterolemia, unspecified; Z79.84 Long term (current) use of oral hypoglycemic drugs; Z79.899 Other long term (current) drug therapy; Z88.8 Allergy status to other drugs, medicaments and biological substances; Z87.891 Personal history of nicotine dependence; Z82.49 Family history of ischemic heart disease and other diseases of the circulatory system
CPT/HCPCS: 96372; 99285; 36415; 93005; 93017; 93306; 85379; 80053; 85652; 83735; 84484; 85025; 85610; 85730; 86140; 71046; 78452; G0378; A9500; J2785; J1644